=== PATIENT | female | born 1990 | race Caucasian/White ===

== ENCOUNTER 2018-08-03 14:23 | Emergency (ER) | payer OTHER ==
[2018-08-03 14:28] VITALS: BMI 26.6
[2018-08-03 14:43] VITALS: BP 125/88; PULSE 77; TEMP 98.6
[2018-08-03] MEDS ORDERED: RALTEGRAVIR POTASSIUM 400 MG TAB PO ONE (15:23)
[2018-08-03] MEDS ORDERED: EMTRICITABINE 200MG/TENOFOVIR 300MG PO ONE (15:23)
[2018-08-03] MEDS ORDERED: HIV POST EXPOSURE PROPHYLAXIS KIT PO ONE (15:37)
[2018-08-03 16:15] LABS: BASO % 1.1 % (0-2.0); EOS % 4.1 % (0-4.5); HEMATOCRIT 41.4 % (32.4-45.2); HEMOGLOBIN 13.8 GM/dl (10.7-15.3); LYMPH % 26.8 % (8-40); MCH 30.3 pg (25.7-33.7); MCHC 33.3 g/dl (32.0-36.0); MEAN CELL VOLUME 91.1 fl (80-96); MEAN PLT VOLUME 9.7 fl (7.5-11.1); MONO % 6.4 % (3.8-10.2); NEUT % 61.6 % (42.8-82.8); PLATELET COUNT 249 K/MM3 (134-434); RBC 4.54 M/mm3 (3.60-5.2); WHITE BLOOD COUNT 8.8 K/mm3 (4.0-10.8)
[2018-08-03 16:19] LABS: ALBUMIN 4.6 g/dl (3.4-5.0); BILIRUBIN,TOTAL 0.7 mg/dl (0.2-1); CALCIUM 9.7 mg/dl (8.5-10); CREATININE 0.9 mg/dl (0.55-1.3); PHOSPHOROUS 3.7 mg/dl (2.5-4.9); POTASSIUM 4.5 mmol/L (3.5-5.1); TOT PROT 7.6 g/dl (6.4-8.2); URIC ACID 4.4 mg/dl (2.6-7.2)
--- NOTE | 2018-08-03 17:17 | PDOC ---
Documentation entered by Freeman Bautista SCRIBE, acting as scribe for Noemi Sauceda MD. Noemi Sauceda MD: This documentation has been prepared by the Michele sinclair Xhesika, SCRIBE, under my direction and personally reviewed by me in its entirety. I confirm that the documentation accurately reflects all work, treatment, procedures, and medical decision making performed by me. History of Present Illness - General Chief Complaint: Blood/Body Fluid Exposure SJR Stated Complaint: NEEDLE STICK Time Seen by Provider: 08/03/18 14:26 History Source: Patient Exam Limitations: No Limitations - History of Present Illness Initial Comments: 08/03/18 16:27 The patient is a 27 year old female who works as a surgical PA at [employer] with no significant PMH of who presents to the emergency department after needle stick injury at 2:15pm. The patient states she is part of the orthopedics group, was in the OR finishing closing up a wound and the suture needle stuck the palmar aspect of her distal left index finger. She reports it was a small solid needle and she was able to express blood from her finger after the injury. The patient states she has been vaccinated for HBV and her titers are within range for immunity on last check 1-2 years ago. The patient denies any complaints at this time. The patient denies fever, chills, nausea, vomiting, diarrhea or constipation. Denies headache, weakness/numbness, CP, SOB, LE edema. Allergy: NKDA Surgical History: None reported Social History: Social Drinker. No tobacco use. Past History - Past Medical History Allergies/Adverse Reactions: Allergies Allergy/AdvReac Type Severity Reaction Status Date / Time No Known Allergies Allergy Verified 08/03/18 14:25 Home Medications: Ambulatory Orders NK [No Known Home Medication] 08/03/18 COPD: No - Suicide/Smoking/Psychosocial Hx Smoking History: Never smoked Hx Alcohol Use: Yes (SOCIAL) Drug/Substance Use Hx: No Review of Systems - Review of Systems Able to Perform ROS?: Yes Comments:: 08/03/18 16:27 GENERAL/CONSTITUTIONAL: No fever or chills. No weakness. HEAD, EYES, EARS, NOSE AND THROAT: No change in vision. No ear pain or discharge. No sore throat. GASTROINTESTINAL: No nausea, vomiting, diarrhea or constipation. GENITOURINARY: No dysuria, frequency, or change in urination. CARDIOVASCULAR: No chest pain or shortness of breath. RESPIRATORY: No cough, wheezing, or hemoptysis. MUSCULOSKELETAL: No joint or muscle swelling or pain. No neck or back pain. SKIN:(+) L index finger blood/ body fluid exposure. No rash NEUROLOGIC: No headache, vertigo, loss of consciousness, or change in strength/ sensation. ENDOCRINE: No increased thirst. No abnormal weight change. HEMATOLOGIC/LYMPHATIC: No anemia, easy bleeding, or history of blood clots. ALLERGIC/IMMUNOLOGIC: No hives or skin allergy. All Other Systems: Reviewed and Negative *Physical Exam - Vital Signs Last Vital Signs Temp Pulse Resp BP Pulse Ox 0/0 L 08/03/18 14:24 - Physical Exam Comments: 08/03/18 16:28 GENERAL: Awake, alert, and fully oriented, in no acute distress EYES:EOMI, sclera anicteric, conjunctiva clear LUNGS: Breath sounds equal, clear to auscultation bilaterally. No wheezes, and no crackles HEART: Regular rate and rhythm, normal S1 and S2, no murmurs, rubs or gallops ABDOMEN: Soft, nontender, normoactive bowel sounds. No guarding, no rebound EXTREMITIES: Normal range of motion, no edema. No cords, erythema, or tenderness NEUROLOGICAL: Normal speech, cranial nerves intact, equal strength and sensation b/l SKIN: palmar aspect of dip with punctate defect to skin at site of needle stick , no blood or erythema. Otherwise, skin is warm, Dry, normal turgor, no rashes or lesions noted. ED Treatment Course - LABORATORY CBC & Chemistry Diagram: 08/03/18 15:36 08/03/18 15:36 - ADDITIONAL ORDERS Additional order review: Laboratory Results 08/03/18 08/03/18 15:36 15:15 Sodium 136 Potassium 4.5 Chloride 99 Carbon Dioxide 25 Anion Gap 12 BUN 17 Creatinine 0.9 Est GFR (CKD-EPI)AfAm 102.28 Est GFR (CKD-EPI)NonAf 88.25 Random Glucose 94 Uric Acid 4.4 Calcium 9.7 Phosphorus 3.7 Total Bilirubin 0.7 AST 19 ALT 14 Alkaline Phosphatase 52 LD Total 122 Total Protein 7.6 Albumin 4.6 Triglycerides 95 Cholesterol 177 Urine HCG, Qual Negative 08/03/18 15:36 RBC 4.54 MCV 91.1 MCHC 33.3 RDW 12.0 MPV 9.7 Neutrophils % 61.6 Lymphocytes % 26.8 Monocytes % 6.4 Eosinophils % 4.1 Basophils % 1.1 - Medications Given in the ED: ED Medications Discontinued Medications Generic Name Dose Route Start Last Admin Trade Name Steve PRN Reason Stop Dose Admin Emtricitabine/Tenofovir 1 tab 08/03/18 15:23 08/03/18 15:40 Truvada PO 08/03/18 15:24 1 tab DAILY ONE Administration Raltegravir 400 mg 08/03/18 15:23 08/03/18 15:40 Isentress - PO 08/03/18 15:24 400 mg BID ONE Administration Medical Decision Making - Medical Decision Making 08/03/18 17:09 27yo F with no sig PMH presents to the ED after accidental needlestick Pt was stick in her L index finger by a solid bore small suturing needle She was able to express blood after the stick Source pt has consented to testing, but this will take many hours Per our algorithm, pt is expose code 2 and HIV SC 1 or 2 for which at minimum the basic regimen is recommended Pt's baseline labs sent off Pt agreeable to initiating PEP with truvada and isentriss. Given 5 day supply and started in the ED Will f/u with occupational health within 1-2 days Pt well appearing and clinically stable, does not want to wait for HIV testing to return I discussed the physical exam findings, ancillary test results and final diagnoses with the patient. I answered all of the patient's questions. The patient was satisfied with the care received and felt comfortable with the discharge plan and treatment plan. The patient will call their primary care physician within 24 hours to arrange follow-up and will return to the Emergency Department with any new, persistent or worsening symptoms. *DC/Admit/Observation/Transfer Diagnosis at time of Disposition: Needle stick injury of finger of left hand, Needlestick injury accident with exposure to body fluid, Occupational exposure in workplace - Discharge Dispostion Disposition: HOME Condition at time of disposition: Stable Decision to Admit order: No - Referrals - Patient Instructions Printed Discharge Instructions: How to Handle Body Fluid Exposure -- Healthcare Worker Additional Instructions: Follow up with occupational health within 1-3 days Take the HIV prophylaxis medications as prescribed Return to the emergency department if you have any new, worsening, or concerning symptoms - Post Discharge Activity Forms/Work/School Notes: Back to Work - Attestations Physician Attestion: 08/03/18 17:17 I, Dr. Noemi Sauceda MD, attest that this document has been prepared under my direction and personally reviewed by me in its entirety. I further attest, that it accurately reflects all work, treatment, procedures and medical decision -making performed by me.
[2018-08-04 08:06] LABS: HBsAG SCREEN Negative (Negative)
== END 2018-08-03 17:27 | disposition home or self-care (01) ==
LOC: FER 14:23
DX: Z77.21 Contact with and (suspected) exposure to potentially hazardous body fluids (principal); X58.XXXA Exposure to other specified factors, initial encounter; Y93.89 Activity, other specified; Y92.234 Operating room of hospital as the place of occurrence of the external cause; Y99.0 Civilian activity done for income or pay; W46.0XXA Contact with hypodermic needle, initial encounter
CPT/HCPCS: 36415; 80053; 82465; 82977; 83615; 84100; 84478; 84550; 84703; 85025; 86317; 86706; 86803; 87340; 87389; 99282-25

== ENCOUNTER 2024-07-12 09:02 | Emergency (ER) | payer BC, OTHER ==
[2024-07-12 09:14] VITALS: RESP 15; TEMP 98.2; BMI 25.1
[2024-07-12] MEDS ORDERED: FAMOTIDINE 20 MG/50 ML IVPB 20 MG/50 ML MG IVPB ONE (09:43)
[2024-07-12] MEDS ORDERED: ONDANSETRON 4 MG/2 ML VIAL ONE (09:43)
[2024-07-12] MEDS ORDERED: MAG HYDROX/AL HYDROX/SIMETH 30 ML UNIT-DOSE CUP ONE (09:43)
[2024-07-12] MEDS: MAG HYDROX/AL HYDROX/SIMETH 30 ML UNIT-DOSE CUP PO ONE (09:57)
[2024-07-12] MEDS: LACTATED RINGERS SOLUTION 1000 ML INFUS.BAG IV ONE (09:57)
[2024-07-12] MEDS: ONDANSETRON 4 MG/2 ML VIAL IVPUSH ONE (09:57)
[2024-07-12] MEDS: FAMOTIDINE 20 MG/50 ML IVPB 20 MG/50 ML MG IVPB ONE (09:57)
[2024-07-12 10:08] LABS: BASOPHILS # 0.04 x10^3/uL (0.01-0.08); EOSINOPHIL % 3.5 % (0.7-5.8); EOSINOPHILS # 0.17 x10^3/uL (0.04-0.36); HEMATOCRIT 33.9 % (34.1-44.9); HEMOGLOBIN 11.4 g/dL (11.2-15.7); MCHC 33.6 g/dl (32.2-35.5); MEAN CELL VOLUME 90.6 fl (79.4-94.8); MEAN PLT VOLUME 10.3 fl (9.4-12.3); MONOCYTE # 0.29 x10^3/uL (0.24-0.86); PLATELET COUNT 183 x10^3/uL (182-369); RDW 11.9 % (12.1-16.8)
[2024-07-12 10:12] VITALS: BP 118/80; PULSE 50
[2024-07-12 10:17] LABS: ALBUMIN 3.9 g/dl (3.4-5.0); BILIRUBIN,TOTAL 0.6 mg/dl (0.2-1); CALCIUM 9.3 mg/dl (8.5-10.1); CREATININE 0.9 mg/dl (0.6-1.3); POTASSIUM 4.4 mmol/L (3.5-5.1); TOT PROT 5.9 g/dl (6.4-8.2)
== END 2024-07-12 12:11 | disposition home or self-care (01) ==
LOC: FER 09:02
PROC: 3E033GC Introduction of Other Therapeutic Substance into Peripheral Vein, Percutaneous Approach (ICD-10-PCS; principal; 2024-07-12)
PROC: 3E033GC Introduction of Other Therapeutic Substance into Peripheral Vein, Percutaneous Approach (ICD-10-PCS; 2024-07-12)
DX: R10.13 Epigastric pain (principal); R14.0 Abdominal distension (gaseous); R11.0 Nausea; R68.83 Chills (without fever); R63.0 Anorexia
CPT/HCPCS: 0241U-QW; 36415; 80053; 81003; 81025; 83690; 85025; 87086; 99284-25